=== PATIENT | male | born 1965 | race Caucasian/White ===

== ENCOUNTER → 2017-06-14 | Outpatient (CLI) | payer OTHER | LOC: YCFC.O 09:41 | PROVIDERS: ATTEND Nurse Practitioner Family | DX: I10 Essential (primary) hypertension (principal) ==

== ENCOUNTER → 2017-06-28 | Outpatient (CLI) | payer OTHER ==
--- NOTE | 2017-06-28 16:22 | RAD ---
EXAM DESCRIPTION: Chest 2 views CLINICAL HISTORY: HEMAPHISIS COMPARISON: Oh TECHNIQUE: PA and lateral views of the chest FINDINGS: Lungs are well aerated bilaterally. No consolidation nor pneumothorax nor pleural effusion in either lung. Cardiomediastinal contours are unremarkable in appearance. Thoracic bony structures grossly intact. IMPRESSION: No acute cardiopulmonary process. Electronically signed by: Carl Molina MD 06/28/2017 4:21 PM CDT
== END ==
LOC: YCFC.O 15:21
PROVIDERS: ATTEND Nurse Practitioner Family
DX: R04.2 Hemoptysis (principal)